=== PATIENT | female | born 1960 | race Caucasian/White ===

== ENCOUNTER 2023-01-30 13:36 | Outpatient (AMB) | payer BC, SELFPAY ==
--- NOTE | 2023-01-30 13:59 | A.OFFPSYCH_ITS ---
Intake Intake Visit Reasons: depression Allergies erythromycin base [ERYTHROMYCIN BASE] Adverse Reaction (Unknown, Unverified 02/19/20 19:26) STOMACH UPSET Medication List - Last Reconciled 01/30/23 by Parmjit Ortiz MD atorvastatin 10 mg PO DAILY glipizide ER 5 mg PO DAILY levothyroxine 88 mcg PO QAM metoprolol succinate ER 25 mg PO DAILY venlafaxine ER 150 mg PO DAILY venlafaxine ER 75 mg PO DAILY HPI- Psychiatric Chief Complaint: depression HPI Narrative: pt has been well x yrs patient still works part-time he mood has been stable no significant panic or anxiety nos depressive episodes. Has been on Effexor 225 mg times years past history of requiring ECT. Patient's PHQ-9 and anxiety are 0. Patient pleasant future oriented able to enjoy things doing generally well in her life Past Psychiatric History: Pt with hx depression was adm wing 2013 dep 2016 [facility] [place] to rehome dog who got dog Mental Status Exam Mental Status Exam Narrative: Mental Status Exam Narrative: Appearance: Casually dressed Behavior: Cooperative appropriate psychomotor: Within normal limits Speech: Normal volume and prosody Thought proccess logical and goal-directed Thought content: Future oriented no self-harming thoughts Mood: Euthymic Affect: Appropriate to mood full affect SI:denies HI:denies VH/AH:none Delusions: None Insight/judgment: Good insight and judgment Memory/cog: Intact Assessment and Plan Assessment & Plan (1) Major depression in full remission: Status: Acute Code(s): F32.5 - Major depressive disorder, single episode, in full remission Plan Continue current plan of care patient generally stable able to enjoy a activities works at maintaining her mood continue Effexor Counseling and coordination of Care Pt. Self Management counseling: Breathing and Maintenance-social rhythm Medication management counseling: Effectiveness and Side effects Diagnosis and Prognosis Counseling: Adequacy of current interventions Details: I spent [30] minutes reviewing the record, seeing the patient and documenting in the medical record. Counseling provided to the patient/caregiver as outlined below. Addressed patient/caregiver concerns regarding current medication regime including effective adherence. Addressed patient/caregiver concerns regarding diagnosis and prognosis including accuracy of diagnosis, prognosis over time, impact of diagnosis. Addressed patient/caregiver concerns regarding impact of recent stressors. PFSH Social History: 2 children no grandchildren h reired post office Substance History: none Trauma History: hx childhood trauma Coding Level of Care Code Est Pt Level 4 (96687) Diagnoses Major depression in full remission F32.5
== END 2023-01-30 14:37 | disposition home or self-care (01) ==
LOC: HO.HOP 13:36
PROVIDERS: Visit Provider Psychiatry & Neurology Psychiatry
DX: F32.5 Major depressive disorder, single episode, in full remission (principal)
CPT/HCPCS: 99214

== ENCOUNTER → 2023-01-30 13:36 | Outpatient (BNVA) | payer BC, SELFPAY | PROVIDERS: Visit Provider Psychiatry & Neurology Psychiatry ==

== ENCOUNTER 2023-11-27 14:48 | Outpatient (AMB) | payer MEDICARE, BC, SELFPAY ==
--- NOTE | 2023-11-27 15:01 | MHC.OFFVISPS ---
Intake Intake Visit Reasons: depression Allergies erythromycin base [ERYTHROMYCIN BASE] Adverse Reaction (Unknown, Unverified 02/19/20 19:26) STOMACH UPSET Medication List - Last Reconciled 11/27/23 by Parmjit Ortiz MD glipizide ER 5 mg PO DAILY levothyroxine 25 mcg PO DAILY metformin ER 1,000 mg PO BID metoprolol succinate ER 25 mg PO DAILY valsartan 40 mg PO DAILY venlafaxine ER 150 mg PO DAILY HPI- Psychiatric Chief Complaint: depression HPI Narrative: Pt is 63 yo female on effexor 150 mg no cp works for [employer] no breakthrough sx swim walks somewhat discouraged at times in her marriage her is not willing to travel since COVID difficulty leaving the house. Patient has had some cardiac arrhythmia has implant pacemaker defibrillator history of idiopathic cardiomyopathy Past Psychiatric History: Pt with hx depression was adm wing 2013 dep 2016 [facility] [place] had to rehome dog who got dog Mental Status Exam Mental Status Exam Narrative: Mental Status Exam Narrative: Appearance: Casually dressed Behavior: Cooperative appropriate psychomotor: Within normal limits Speech: Normal volume and prosody Thought proccess logical and goal-directed Thought content: Future oriented no self-harming thoughts Mood: Euthymic Affect: Appropriate to mood full affect SI:denies HI:denies VH/AH:none Delusions: None Insight/judgment: Good insight and judgment Memory/cog: Intact Assessment and Plan Assessment & Plan (1) Major depression in full remission: Status: Acute Code(s): F32.5 - Major depressive disorder, single episode, in full remission Plan Has done well on Effexor 150 mg patient does have a history of cardiomyopathy with decreased ejection fraction and in July had a pacemaker/defibrillator implanted seems to be doing well with this works full-time at the [employer] not overly depressed enjoys swimming time with her dog continue plan of care Medications: Changed From venlafaxine ER in addition to 75 mg dose 150 mg PO DAILY 90 caps 1RF To venlafaxine ER 150 mg PO DAILY 90 caps 3RF Counseling and coordination of Care Details-Self Mgmt counseling: issues related to managing current state recent issues pt with pos attitude Details: I spent [] minutes reviewing the record, seeing the patient and documenting in the medical record. Counseling provided to the patient/caregiver as outlined below. Addressed patient/caregiver concerns regarding current medication regime including effective adherence. Addressed patient/caregiver concerns regarding diagnosis and prognosis including accuracy of diagnosis, prognosis over time, impact of diagnosis. Addressed patient/caregiver concerns regarding impact of recent stressors. 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
== END 2023-11-27 17:20 | disposition home or self-care (01) ==
LOC: HO.HOP 14:48
PROVIDERS: Visit Provider Psychiatry & Neurology Psychiatry
DX: F32.5 Major depressive disorder, single episode, in full remission (principal)
CPT/HCPCS: 99214

== ENCOUNTER → 2023-11-27 14:48 | Outpatient (BNVA) | payer MEDICARE, BC, SELFPAY | PROVIDERS: Visit Provider Psychiatry & Neurology Psychiatry | DX: F32.5 Major depressive disorder, single episode, in full remission (principal) | CPT/HCPCS: 99212 ==

== ENCOUNTER 2025-02-04 14:06 | Outpatient (AMB) | payer MEDICARE, BC, SELFPAY ==
--- NOTE | 2025-02-04 14:43 | MHC.OFFVISPS ---
Intake Intake Visit Reasons: depression Allergies erythromycin base (ERYTHROMYCIN BASE) Adverse Reaction (Unknown, Unverified 02/19/20 19:26) STOMACH UPSET Medication List - Last Reconciled 02/04/25 by Parmjit Ortiz MD atorvastatin 10 mg PO DAILY glipizide ER 5 mg PO DAILY levothyroxine 88 mcg PO QAM metformin ER 1,000 mg PO BID metoprolol succinate ER 25 mg PO DAILY valsartan 40 mg PO DAILY venlafaxine ER 150 mg PO DAILY HPI- Psychiatric Chief Complaint: depression HPI Narrative: Patient seen psychiatric follow-up. Patient has tolerated Effexor well and continue to do an excellent job in preventing depressive relapse. Patient did have significant depressions in the past. No complaints of side effects blood pressure and control. Patient continues to work part-time. Continues to be frustrated that her does not want to travel. PHQ-9 0 patient stable for an extended period of time Past Psychiatric History: Pt with hx depression was adm wing 2013 dep 2016 [facility] [place] had to rehome dog who got dog Mental Status Exam Mental Status Exam Narrative: Mental Status Exam Narrative: Appearance: Casually dressed Behavior: Cooperative appropriate psychomotor: Within normal limits Speech: Normal volume and prosody Thought proccess logical and goal-directed Thought content: Future oriented no self-harming thoughts Mood: Euthymic Affect: Appropriate to mood full affect SI:denies HI:denies VH/AH:none Delusions: None Insight/judgment: Good insight and judgment Memory/cog: Intact Assessment and Plan Assessment & Plan (1) Major depression in full remission: Status: Acute Code(s): F32.5 - Major depressive disorder, single episode, in full remission Assessment and Plan: Patient stable on current regimen has not had relapsed for a number of years can follow-up with her primary care physician Plan Patient has done quite well patient stable on Effexor chronically doing well no change indicated Medications: Refilled venlafaxine ER 150 mg PO DAILY 90 caps 3RF Counseling and coordination of Care Pt. Self Management counseling: Breathing and Maintenance-social rhythm Diagnosis and Prognosis Counseling: Prognosis over time Details: I spent [30] minutes reviewing the record, seeing the patient and documenting in the medical record. Counseling provided to the patient/caregiver as outlined below. Addressed patient/caregiver concerns regarding current medication regime including effective adherence. Addressed patient/caregiver concerns regarding diagnosis and prognosis including accuracy of diagnosis, prognosis over time, impact of diagnosis. Addressed patient/caregiver concerns regarding impact of recent stressors. 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
--- OUTSIDE RECORDS SUMMARY | 2025-02-04 16:22 | XMS_ITS | Encounter Summary ---
Author Organization [facility] Address [address] [place] [id number] Phone Care Team Providers Care Dermatology Teacher Name Role Phone Nidhi Nazario MD Primary Care Provider + [phone] Unknown, Unknown Primary Care Provider Tara gonzalez Encounter Details Date Type Department Care Team (Late st Contact Info) Description 02/14/2022 Procedure Pass BWF Periop 6th floor [address] [place] [address] Social History Tobacco Use Types Packs/Day Years Used Date Smoking Tobacco: Never Smokeless Tobacco: Never Alcohol Use Standard Drinks/Week Comments Yes 0 (1 standard drink = 0.6 oz pur e alcohol) once in a while Comments Unknown Sex and Gender Information Value Date Recorded Sex Assigned at Female 12/29/2021 9:46 AM EDT Legal Sex Female 9:50 PM EDT Gender Identity Female 12/29/2021 9:46 AM EDT Sexual Orientation Straight 12/29/2021 9: 46 AM EDT documented as of this encounter Plan of Treatment Not on file documented as of this encounter Visit Diagnoses Not on filedocumented in this encounter Additional Health Concerns Assessment Noted Time PHQ-2 Depression Total Score: 0 12/30/19 9:20 AM EDT documented as of this encounter Care Teams Dermatology Teacher Relationship Specialty Start Date End Date Nidhi Nazario MD [address] [place] [id number] PCP - General Internal Medicine 6/13/22 8/28/23 Unknown, Unknown, MD PCP - General 01/30/23 documented as of this encounter Additional Source Comments The information contained in this document represents components of the legal health record. It is not the complete legal health record.[facility]
--- OUTSIDE RECORDS SUMMARY | 2025-02-04 16:22 | XMS_ITS | Encounter Summary ---
Author Organization [facility] Address [address] [place] [phone] Phone Care Team Providers Care Supervisor Fertilizer Name Role Phone Nidhi Nazario MD Primary Care Provider + [phone] Unknown, Unknown Primary Care Provider Tara gonzalez Encounter Details Date Type Department Care Team (Late st Contact Info) Description 04/03/2022 Procedure Pass BWF Periop 6th floor [address] [place] [address] Social History Tobacco Use Types Packs/Day Years [...] documented as of this encounter Care Teams Supervisor Fertilizer Relationship Specialty Start Date End Date Nidhi Nazario MD [address] [place] [phone] PCP - General Internal Medicine 6/13/22 8/28/23 Unknown, Unknown, MD PCP - General 01/30/23 documented as of this encounter Additional Source Comments The information contained in this document represents components of the legal health record. It is not the complete legal health record.[facility]
--- OUTSIDE RECORDS SUMMARY | 2025-02-04 16:22 | XMS_ITS | Clinical Summary ---
Author Organization [facility] Address [address] [place] [address] Care Team Providers Care Asbestos Textile Supervisor Name Role Phone Basilio Salguero MD Primary Care Provider [phone] Surgical History Surgery Date Site/Laterality Comments COLONOSCOPY 07/12/2011 PROCEDURE: HISTORICAL COLONOSCOPY; COMMENT: one diminutive tubular adenoma. TUBAL LIGATION 1986 PROCEDURE: HISTORICAL TUBAL LIGATION OTHER SURGICAL HISTORY 1981 PROCEDURE: ---- OTHER ----; COMMENT: L breast lumpectomy - benign OTHER SURGICAL HISTORY 2003 PROCEDURE: ---- OTHER ----; COMMENT: uterine ablation KNEE SURGERY 02.29.16 Left PROCEDURE: HISTORICAL KNEE SURGERY; COMMENT: partial replacement Medical History Medical History Date Comments Hypothyroidism 09/27/2015 DX:Hypothyroidis m Osteopenia 09/27/2015 DX:Osteopenia Anxiety 09/27/2015 DX:Anxiety Diabetes type 2, uncontrolled 09/27/2015 DX :Diabetes type 2, uncontrolled Meniere's disease 09/27/2015 DX:Meniere's d isease Depression 09/27/2015 DX:Depression Osteoarthritis of knee 09/27/2015 DX:Osteoa rthritis of knee; COMMENT: Left / had Euflexxa injections 2011 Hearing loss, sensorineural, unilateral DX:Hearing loss, sensorineural, unilateral; COMMENT: Left History of colon polyps 10/02/2015 DX:Histo ry of colon polyps; COMMENT: 2011; 5 yr f/u per pt Family History Medical History Relation Name Comments Diabetes Brother 1 Diabetes Brother 2 Coronary artery disease Father Diabetes Father Depression Son Schizophrenia Son Hypertension Neg Hx Other cancer Neg Hx Relation Name Status Comments Brother 1 Brother 2 Father Son Social History Tobacco Use Types Packs/Day Years Used Date Smoking Tobacco: Former Cigarettes 0.5 3 0 10/06/1973 - 10/06/1976 Smokeless Tobacco: Never Alcohol Use Standard Drinks/Week Comments Yes 0 (1 standard drink = 0.6 oz pur e alcohol) Comments Unknown Sex and Gender Information Value Date Recorded Sex Assigned at Not on file Legal Sex Female 10:38 AM EST Gender Identity Not on file Sexual Orientation Not on file Obstetrics History Plan of Treatment Health Maintenance Due Date Last Done Comments Diabetes: Annual GFR (Glomerular Filtration Rate) 1958 Diabetes: Annual Foot Exam 1968 Diabetes: Annual Retina Eye Exam 1968 Pneumococcal Vaccine: 50+ Years (1 of 1 - PCV) 2008 Zoster Vaccines (1 of 2) 2008 Cholesterol Screening (Lipid Panel) 05/08/2022 Colorectal Cancer Screening: Colonoscopy 05/08/2022 Hepatitis C Screening 05/08/2022 Osteoporosis Screening (Bone Density Screening) 05/08/2022 Social Influencers of Health Screening 05/08/2022 Diabetes: Annual Urine Albumin-Creatinine Ratio (uACR) 05/19/2022 Diabetes: Blood Sugar Control Test (HGBA1C) 05/19/2022 Falls Risk Assessment 09/25/2023 Depression Screening 06/04/2024 DTaP,Tdap,and Td Vaccines (2 - Td or Tdap) 09/14/2024 09/14/2014 COVID-19 Vaccine ( season) 2025 02/26/2021, 08/01/2020, 07/12/2020 Influenza Vaccine (#1) 2025 0, 04/23/2019, 03/20/2018 Breast Cancer Screening 03/14/2026 03/14/20 24, 03/01/2023, 09/05/2021, Additional history exists RSV Immunization Adult Patients (1 - 1-dose 75+ series) 2033 HIB Vaccines Aged Out No longer eligi ble based on patient's age to complete this topic HPV Vaccines Aged Out No longer eligi ble based on patient's age to complete this topic Hepatitis A Vaccines Aged Out No long er eligible based on patient's age to complete this topic Hepatitis B Vaccines Aged Out No long er eligible based on patient's age to complete this topic IPV Vaccines Aged Out No longer eligi ble based on patient's age to complete this topic MMR Vaccines Aged Out No longer eligi ble based on patient's age to complete this topic Meningococcal ACWY Vaccine Aged Out N o longer eligible based on patient's age to complete this topic Meningococcal B Vaccine Aged Out No l onger eligible based on patient's age to complete this topic RSV Immunization Patients Under 20 months Aged Out No longer eligible based on patient's age to complete this topic Varicella Vaccines Aged Out No longer eligible based on patient's age to complete this topic Procedures Procedure Name Priority Date/Time Associated Diagnosis Comments [facility] SCREENING DIGITAL Routine 03/14/2024 5:23 PM EDT Encounter for screening mammogram for malignant neoplasm of breast from Last 3 Months or Most Recently Relevant to Health Maintenance Results * JOSY SCREENING DIGITAL (03/14/2024 5:23 PM EDT) Anatomical Region Laterality Modality Mammography 03/14/2024 2:34 PM EDT Narrative 03/14/2024 5:23 PM EDT [facility] Diagnostic Imaging Department [address] [place] [address] Patient: MAYURI GIRARD /Age/Sex: 1960 - 63 - F Unit#: [id number] Location/Status: SPDIMAM/REG CLI Mnemonic/Ordering Site: [facility] Ordering Physician: RAJ JUÁREZ MD Josy Screening Digital - 03/14/24 - 150 Report Status:Signed EXAM: SCREENING MAMMOGRAPHY, BILATERAL HISTORY: SCREENING. No additional history. COMPARISON: 03/01/2023, 09/05/2021, 08/04/2020 TECHNIQUE: Synthesized CC and MLO projections of each breast. Tomosynthesis of each breast in the CC and MLO projections. ADDITIONAL IMAGING: None Computer-aided detection was employed with the iCAD profound AI 3-D. TISSUE DENSITY: The breasts are heterogeneously dense, which may obscure small masses. (BI-RADS category C) FINDINGS: RIGHT BREAST: No suspicious mass. No suspicious calcification. No distortion. No additional suspicious right breast findings LEFT BREAST: No suspicious mass. No suspicious calcification. No distortion. Power generator obscures some of the anatomy. IMPRESSION: No mammographic evidence of malignancy. No suspicious interval change. A negative mammogram in the presence of a clinically suspicious palpable abnormality does not preclude the possibility of malignancy or alter the indications for biopsy. ASSESSMENT: BI-RADS 1: NEGATIVE RECOMMENDATION(S): 1: Routine screening mammogram BILATERAL in 1 year. Dictating Physician: Ashley COHEN BRET MD Electronically Signed by: Ashley COHEN BRET MD Dic Date/Time: 03/14/241715 Sign date/Time: 03/14/241722 Procedure Note Maykel Cohen MD - 04/01/2024 [facility] Diagnostic Imaging Department [address] [place] [id number] Patient: MAYURI GIRARD Jason Bliss/Age/Sex: 1960 - 63 - F Unit#: [id number] Location/Status: [facility] CLI Mnemonic/Ordering Site: [facility] Ordering Physician: RAJ JUÁREZ MD Josy Screening Digital - 03/14/24 - 1502 Report Status:Signed EXAM: SCREENING MAMMOGRAPHY, BILATERAL HISTORY: SCREENING. No additional history. COMPARISON: 03/01/2023, 09/05/2021, 08/04/2020 TECHNIQUE: Synthesized CC and MLO projections of each breast.Tomosynthesis of each breast in the CC and MLO projections. ADDITIONAL IMAGING: None Computer-aided detection was employed with the [employer] AI 3-D. TISSUE DENSITY: The breasts are heterogeneously dense, which may obscuresmall masses. (BI-RADS category C) FINDINGS: RIGHT BREAST: No suspicious mass. No suspicious calcification. No distortion. Noadditional suspicious right breast findings LEFT BREAST: No suspicious mass. No suspicious calcification. No distortion. Power generator obscures some of the anatomy. IMPRESSION: No mammographic evidence of malignancy. No suspicious interval change. A negative mammogram in the presence of a clinically suspicious palpable abnormality does not preclude the possibility of malignancy or alter the indications for biopsy. ASSESSMENT: BI-RADS 1: NEGATIVE RECOMMENDATION(S): 1: Routine screening mammogram BILATERAL in 1 year. Dictating Physician: Ashley COHEN BRET MD Electronically Signed by: Ashley COHEN BRET MD Dic Date/Time: 03/14/241715 Sign date/Time: 03/14/241722 Raj Juárez MD IMG BI PROCEDURES Final Re sult from Last 3 Months or Most Recently Relevant to Health Maintenance Care Teams Asbestos Textile Supervisor Relationship Specialty Start Date End Date Basilio Salguero MD PCP - General Internal Medicine 08/30/15
--- OUTSIDE RECORDS SUMMARY | 2025-02-04 16:22 | XMS_ITS | Clinical Summary ---
Author Organization [facility] Address [address] [place] [phone] Phone Care Team Providers Care Football Pad Repairer Name Role Phone Unknown, Unknown Primary Care Provider Unavai lable Allergies Active Allergy Reactions Criticality Noted Date Comments Erythromycin Nausea and/or Vomiting 09/07/2016 Dapagliflozin Other (See Comments) Low 03/21/2022 Yeast infection Dulaglutide Nausea and/or Vomiting 04/12/2022 Pt reports 04/12/22 Medications meclizine (ANTIVERT) 25 mg tablet Take 25 mg by mouth 2 (two) times a day as needed. 5 Active multivitamin per tablet Take 1 tablet by mouth daily. Active venlafaxine (EFFEXOR-XR) 150 MG 24 hr capsule Take 150 mg by mouth every morning. 1 Active vitamin B complex (B COMPLEX 1 ORAL) Take 1 capsule by mouth daily. Active cholecalciferol (VITAMIN D3) 2,000 unit capsule Take 1 capsule by mouth daily. Active venlafaxine (EFFEXOR-XR) 75 MG 24 hr capsule Take 1 capsule by mouth nightly at bedtime. 2 Active melatonin 3 mg Tab Take 3 mg by mouth nightly at bedtime. Active acetaminophen (TYLENOL) 325 mg tablet Take 3 tablets (975 mg total) by mouth every 8 (eight) hours. 0 2 Active amoxicillin (AMOXIL) 500 MG capsule Take 2,000mg one hour prior to dental procedure 20 capsule 5 2 Active ibuprofen (ADVIL,MOTRIN) 800 MG tablet Take 800 mg by mouth every 8 (eight) hours as needed. 3 Active glipiZIDE (GLUCOTROL XL) 5 MG 24 hr tablet Take 1 tablet (5 mg total) by mouth daily. 90 tablet 3 3 Active metFORMIN (GLUCOPHAGE-XR) 500 MG 24 hr tablet Take 4 tablets (2,000 mg total) by mouth every morning. 240 tablet 3 3 Active levothyroxine (SYNTHROID, LEVOTHROID) 88 MCG tablet TAKE 1 TABLET BY MOUTH EVERY DAY IN THE MORNING 90 tablet 3 3 Active Active Problems Problem Noted Date Diagnosed Date Hyponatremia 09/15/2022 Assessment & Plan (09/15/2022 11:34 AM EDT): Now resolved Hypocalcemia 09/15/2022 Assessment & Plan (09/15/2022 11:33 AM EDT): Now resolved Cardiomyopathy 09/15/2022 Assessment & Plan (09/15/2022 11:32 AM EDT): Recently worsened echo findings Discussed today Dr. Smith rec'd Lisinopril 2.5mg Patient worried that it might bottom out her BP BP's at home normally on the lower side Stay hydrated Try the Lisinopril F/u Dr. Smith S/P total knee arthroplasty, left 05/01/2022 LBBB (left bundle branch block) 03/21/2022 Depression 03/21/2022 Anxiety 03/21/2022 Insomnia 03/21/2022 Vaginitis and vulvovaginitis 03/15/2022 Assessment & Plan (03/15/2022 3:26 PM EDT): I suspect this is caused as side effect of the Farxiga Decrease carbs in diet Fluconazole x 1 dose, Risks/benefits of therapy explained, including MAT and other treatment options. Need for hepatitis C screening test 12/29/2021 Assessment & Plan (12/29/2021 10:25 AM EDT): Patient Declined testing, they acknowledge the risks/benefits Screening for human immunodeficiency virus 12/29 Assessment & Plan (12/29/2021 10:25 AM EDT): Patient Declined testing, they acknowledge the risks/benefits Vitamin D deficiency 12/29/2021 Assessment & Plan (09/15/2022 11:35 AM EDT): Stable on supplements Assessment & Plan (12/29/2021 10:24 AM EDT): stable Type 2 diabetes mellitus wit h hyperglycemia, without long-term current use of insulin 12/29/2021 Assessment & Plan (09/15/2022 11:34 AM EDT): Improved on glypizide Continue to follow DM2 diet Recheck labs in 6 months Assessment & Plan (04/12/2022 2:43 PM EST): ADR to farxiga and trulicity Will try Glipizide ER 5mg Risks/benefits of therapy explained, including MAT and other treatment options. Recheck HgbA1c in 3 months Assessment & Plan (03/15/2022 3:25 PM EDT): Has been uncontrolled Overdue to labs Check labs this week Discussed Lantus daily, she'd rather not do that Also discussed GLP Concern that Farxiga may be causing the vaginitis Advised decrease carbs in diet to decrease Glucosuria, etc. Will likely add GLP Await labs Assessment & Plan (12/29/2021 10:24 AM EDT): Uncontrolled Decrease carbs in diet Increase Farxiga revheck hemoglobin aic But may not reflect full improv if less than 3 months Hyperlipidemia 12/29/2021 Assessment & Plan (09/15/2022 11:33 AM EDT): Had been better Now mildly uncontrolled Focus on healthy diet and exercise Recheck labs 6 months Assessment & Plan (03/15/2022 3:23 PM EDT): Controlled with diet Assessment & Plan (12/29/2021 10:23 AM EDT): Controlled with diet Hypothyroidism 12/29/2021 Assessment & Plan (09/15/2022 11:34 AM EDT): Stable on meds Assessment & Plan (03/15/2022 3:23 PM EDT): Stable on med Assessment & Plan (12/29/2021 10:23 AM EDT): Stable on meds Chronic knee pain 12/29/2021 Assessment & Plan (03/15/2022 3:22 PM EDT): Scheduled for surgery 04/03/22 Feels ready Adjustment disorder with mixed anxiety and depre ssed mood 12/29/2021 Assessment & Plan (09/15/2022 11:31 AM EDT): Treated by Dr. 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 Overview (07/12/2021): Let medial Sanborn UKA, tibial implant Assessment & Plan (12/29/2021 10:24 AM EDT): Surgery planned for Sept Immunizations Immunization Administration Dates Next Due Influenza Quadrivalent MDCK Preservative Free IM 03/17/2022 Influenza Quadrivalent MDCK w/Preservative IM 03/20/2018 Influenza Quadrivalent Prese rvative Free IM 04/08/2021,02/19/2020,04/23/2019,2016 PPD Test 09/22/2020,08/17/2020 Pneumococcal conjugate PCV20 09/15/2022 Tdap 09/14/2014 Zoster recombinant 11/30/2021,06/05/2021 Family History Medical History Relation Comments Diabetes type I Brother 1 Cerebral palsy Brother 2 Diabetes type II Brother 2 Hearing loss Brother 2 Arthritis Brother 3 Hypothyroidism Daughter Arthritis Father Diabetes type II Father Hypertension Father Psychiatric disorder Maternal Grandfather Arthritis Maternal Grandmother Hyperlipidemia Maternal Uncle Hypertension Maternal Uncle Pulmonary fibrosis Paternal Aunt 1 Sudden cardiac Paternal Aunt 1 Breast cancer Paternal Aunt 2 Sudden cardiac Paternal Grandfather Diabetes type II Paternal Grandmother Sudden cardiac Paternal Uncle 1 Sudden cardiac Paternal Uncle 2 Sudden cardiac Paternal Uncle 3 Sudden cardiac Paternal Uncle 4 Sudden cardiac Paternal Uncle 5 Schizophrenia Son Relation Status Comments Brother 1 Brother 2 Alive Brother 3 Alive Daughter Alive Father Maternal Grandfather Maternal Grandmother Maternal Uncle Alive Mother Paternal Aunt 1 Paternal Aunt 2 Paternal Grandfather Paternal Grandmother Paternal Uncle 1 Paternal Uncle 2 Paternal Uncle 3 Paternal Uncle 4 Paternal Uncle 5 Son Alive Social History Tobacco Use Types Packs/Day Years Used Date Smoking Tobacco: Never Smokeless Tobacco: Never Tobacco Cessation:Counseling Given: Not Answered Alcohol Use Standard Drinks/Week Comments Yes 0 (1 standard drink = 0.6 oz pur e alcohol) once in a while Education Answer Date Recorded Are you interested in more education? Not on kennedy e 09/29/2022 Are you concerned about learning? Not on file 09/29/2022 No 09/29/2022 No 09/29/2022 Digital Access Answer Date Recorded No 10/27/2022 No 10/27/2022 Reliable internet access at home? Not on file 10/27/2022 Device with a working camera? Not on file Comments No Sex and Gender Information Value Date Recorded Sex Assigned at Female 12/29/2021 9:46 AM EDT Legal Sex Female 9:50 PM EDT Gender Identity Female 12/29/2021 9:46 AM EDT Sexual Orientation Straight 12/29/2021 9: 46 AM EDT Last Filed Vital Signs Vital Sign Reading Time Taken Comments Blood Pressure 138/79 05/02/2022 9:45 AM EST Pulse 68 05/02/2022 8:59 AM EST Temperature 36.3 C (97.3 F) 05/02/2022 7:59 AM EST Respiratory Rate 18 05/02/2022 7:59 AM EST Oxygen Saturation 97% 05/02/2022 9:45 AM EST Inhaled Oxygen Concentration - - Weight 64.9 kg (143 lb) 05/01/2022 10:29 AM EST Height 166.4 cm (5' 5.5 ) 05/01/2022 10:29 AM ES T Body Mass Index 23.43 05/01/2022 10:29 AM EST Plan of Treatment Health Maintenance Due Date Last Done Comments HEPATITIS C SCREENING 1976 COLOGUARD 09/25/2003 FIT TEST 09/25/2003 FOBT 09/25/2003 SIGMOIDOSCOPY 09/25/2003 VIRTUAL COLONOSCOPY 09/25/2003 COLONOSCOPY 07/12/2021 07/12/2011, 07/11/2011 COLORECTAL CANCER SCREENING 07/12/2021 DIABETIC EYE EXAM 12/29/2021 HEMOGLOBIN A1C 09/14/2022 03/16/2022, 12/26/2021 LIPID PANEL 12/26/2022 12/26/2021 TSH LEVEL 12/26/2022 12/26/2021 DEPRESSION SCREENING 12/29/2022 12/29/2021 URINE MICROALBUMIN/CREATININE RATIO 03/16/2023 03/16/2022 BLOOD PRESSURE 03/17/2023 09/15/2022 MAMMOGRAM 09/06/2023 09/05/2021, 06/09/2014 CREATININE LEVEL 09/16/2023 09/15/2022, , 05/01/2022, Additional history exists OSTEOPOROSIS SCREENING INITIAL (ONE-TIME) 09/25/2023 Adult Td,Tdap Booster 09/14/2024 09/14/2014 INFLUENZA VACCINE (#1) 2025 , 04/08/2021, 02/19/2020, Additional history exists COVID-19 VACCINE (2024- season) 2025 02/20/2022, 09/06/2021, 02/26/2021, Additional history exists RSV VACCINE (1 - 1-dose 75+ series) 2033 ZOSTER VACCINES Completed 11/30/2021, 06/05/2021 PNEUMOCOCCAL VACCINES (50+ years) Completed 09/15/2022 SMOKING STATUS SCREENING (Once After 26 Yrs) Completed 09/15/2022 HEPATITIS A VACCINES Aged Out No long er eligible based on patient's age to complete this topic HIB VACCINES Aged Out No longer eligi ble based on patient's age to complete this topic MENINGOCOCCAL VACCINES (ACWY) Aged Out No longer eligible based on patient's age to complete this topic MENINGOCOCCAL VACCINES (B) Aged Out N o longer eligible based on patient's age to complete this topic Medical Devices Implanted Type Area Wood Form Builder Device Identifier Shelf Expiration Date Model / Serial / Lot Knee Stem [id number] Sz Tibial Pfc Sigma Titanium Extension Cemented - Sn/A Implanted:Qty: 1 on 05/01/2022 by Williams Vidal MD at [facility] NODATA Left: Knee [facility] [facility] 09/02/2027 [id number] / N/A / [id number] Prosthetic Joint Prosthetic Joint Description:Partial knee Femoral Component Sz 40sigma Cr150 [place] Ed Cemented Lt Narrow - Sn/A Implanted:Qty: 1 on 05/01/2022 by Williams Vidal MD at [facility] STANDARD Left: Knee [facility] 10/01/2025 [id number] / N/A / [id number] Knee Component 38mm Patella Oval Dome 3 Peg Pfc Sigma 06 - Sn/A Implanted:Qty: 1 on 05/01/2022 by Williams Vidal MD at [facility] STANDARD Left: Knee [facility] 12/01/2026 [id number] / N/A / [id number] Tibial Tray 4mm Pfc Sigma Fixed Bearing Modular Cemented [place] Chromium - Sn/A Implanted:Qty: 1 on 05/01/2022 by Williams Vidal MD at [facility] STANDARD Left: Knee [facility] 03/03/2032 [id number] / N/A / [id number] Tibial Insert 4x12.5mm Sigma Cross Linked Polyethylene Curved Bearing - Sn/A Implanted:Qty: 1 on 05/01/2022 by Williams Vidal MD at [facility] STANDARD Left: Knee [facility] 04/03/2024 [id number] / N/A / [id number] Cement Bone 40g Simplex P Demineralized Matrix Radiopaque Void Filler Full Dose Single Vial Bx/10ea - Sn/A Implanted:Qty: 2 on 05/01/2022 by Williams Vidal MD at [facility] Left: Knee [employer] [employer] 10/01/2024 [id number] / N/A / [id number] Procedures Procedure Name Priority Date/Time Associated Diagnosis Comments BASIC METABOLIC PANEL Routine 05/02/2022 6:28 AM EST MICROALBUMIN/CREATIN INE RATIO, RANDOM URINE Routine 03/16/2022 10:04 AM EDT Type 2 diabetes mellitus with unspecified complications HEMOGLOBIN A1C Routine 03/16/2022 9:35 AM EDT Type 2 diabetes mellitus with hyperglycemia, without long-term current use of insulin LIPID PANEL Routine 12/26/2021 9:29 AM EDT TSH Routine 12/26/2021 9:29 AM EDT HM MAMMOGRAPHY Routine 09/05/2021 HM COLONOSCOPY FOR RESULT ENTRY ONLY Routine 07/12/2011 from Last 3 Months or Most Recently Relevant to Health Maintenance Results * (ABNORMAL) Basic metabolic panel (05/02/2022 6:28 AM EST) SODIUM 132(L) 136 - 145 mmol/L [facility] CHLORIDE 99 98 - 107 mmol/L [facility] POTASSIUM 4.1 3.4 - 5.0 mmol/L [facility] CO2 28 22 - 31 mmol/L [facility] BUN 13 6 - 23 mg/dL [facility] CREATININE 0.65 0.50 - 1.20 mg/dL [facility] GLUCOSE 186(H) 70 - 115 mg/dL [facility] CALCIUM 8.5(L) 8.6 - 10.7 mg/dL [facility] EGFR 99 >60 mL/min/1.7 3m2 [facility] Comment:Estimated glomerular filtration rate calculated using the CKD-EPI refit equation. ANION GAP 5 3 - 15 mmol/L [facility] Blood 05/02/2022 6:28 AM EST 05/02/2022 6:50 AM EST us Conrado Freeman MD LAB BLOOD ORDERABLES F inal Result [facility] [address] [place] [id number] * Microalbumin/creatinine ratio, random urine (03/16/2022 10:04 AM EDT) URINE MICROALBUMIN <1.2 0 - 2.3 mg/dL [facility] URINE CREATININE 71 mg/dL [facility] MICROALB/CRE RATIO NOT CALCULATED 0 - 20 mg/g Cre [facility] Comment:due to Microalbumin <1.2 Urine (Urine) 03/16/2022 10: 04 AM EDT 03/16/2022 10:08 AM EDT us Nidhi Nazario MD URINE ORDERABLES Final Resul t [facility] [address] [place] [address] * (ABNORMAL) Hemoglobin A1c (03/16/2022 9:35 AM EDT) HEMOGLOBIN A1C 7.6(H) 4.3 - 5.8 % [facility] Blood 03/16/2022 9:35 AM EDT 03/16/2022 9:38 AM EDT us Nidhi Nazario MD LAB BLOOD ORDERABLES Final R esult [address] [address] * TSH (12/26/2021 9:29 AM EDT) TSH 0.58 0.27 - 4.20 uIU/mL [facility] 12/26/2021 9:29 AM EDT 12/26/2021 9:36 AM EDT us Leigha Gonzáles PA-C LAB BLOOD ORDERABLES Final Result Performing Organization Address [facility] de Phone Number [address] [address] * (ABNORMAL) Lipid panel (12/26/2021 9:29 AM EDT) HDL 50 mg/dL [facility] Comment: Interpretation <40 mg/dL: Low HDL cholesterol (major risk factor for CHD) Greater than or equal to 60 mg/dL: High HDL cholesterol ( negative risk factor for CHD) HDL - cholesterol is affected by a number of factors, e.g. smoking, excerise, hormones, sex and age. CHOLESTEROL 186 0 - 240 mg/dL [facility] TRIGLYCERIDES 248(H) 30 - 160 mg/dL [facility] LDL 86 50 - 129 mg/dL [facility] Comment: LDL levels in terms of risk for coronary heart disease: <100 mg/dL: Optimal 100-129 mg/dL: Near or above optimal 130-159 mg/dL: Borderline high 160-189 mg/dL: High >190 mg/dL: Very High CARDIAC RISK RATIO 3.7 3.3 - 4.4 C [facility] 12/26/2021 9:29 AM EDT 12/26/2021 9:36 AM EDT Leigha Gonzáles PA-C LAB BLOOD ORDERABLES Final Result [facility] [address] [place] [address] * MAMMOGRAPHY FOR RESULT ENTRY ONLY (09/05/2021) Historical Provider HEALTH MAINTENANCE Final Result * COLONOSCOPY FOR RESULT ENTRY ONLY (07/12/2011) Historical Provider HEALTH MAINTENANCE Edited Result - Final from Last 3 Months or Most Recently Relevant to Health Maintenance Insurance [facility] [[email or web address] MEDICARE PART A & B [facility] MEDICARE PART A & B [facility] [[email or web address]] MEDICARE PART A & B [facility] [[email or web address]] [facility] [[email or web address]] MEDICARE PART A [place] [id number] [facility] [[email or web address]] MEDICARE PART A & B [facility] [[email or web address]] MEDICARE PART A & B Care Teams Football Pad Repairer Relationship Specialty Start Date End Date Unknown, Unknown, PCP - General 01/30/23 Additional Source Comments The information contained in this document represents components of the legal health record. It is not the complete legal health record.[facility]
--- OUTSIDE RECORDS SUMMARY | 2025-02-04 16:22 | XMS_ITS | Encounter Summary ---
Author Organization [facility] Address [address] [place] [phone] Phone Care Team Providers Care Induction Coordination Engineer Name Role Phone Nidhi Nazario MD Primary Care Provider + [phone] Unknown, Unknown Primary Care Provider Tara gonzalez Encounter Details Date Type Department Care Team (Late st Contact Info) Description 05/01/2022 Procedure Pass BWF Periop 6th floor [address] [place] [address] Social History Tobacco Use Types Packs/Day Years Used Date Smoking Tobacco: Never Smokeless Tobacco: Never Alcohol Use Standard Drinks/Week Comments Yes 0 (1 standard drink = 0.6 oz pur e alcohol) once in a while Comments No Sex and Gender Information Value Date Recorded Sex Assigned at Female 12/29/2021 9:46 AM EDT Legal Sex Female 9:50 PM EDT Gender Identity Female 12/29/2021 9:46 AM EDT Sexual Orientation Straight 12/29/2021 9: 46 AM EDT documented as of this encounter Functional Status * Calculated C-SSRS Risk Score (Lifetime/Recent) Answer Date of Assessment Author No Risk Indicated 05/01/2022 5:18 PM Minor Julio RN * [place] Suicide Severity Rating Scale (Screener/Recent Self-Report) Question Answer Date of Assessment Author 1. Wish to be (Past 1 Month) No 05/01/2022 5:18 PM Trish Lima RN 2. Non-Specific Active Suicidal Thoughts (Past 1 Month) No 05/01/2022 5:18 PM Trish Lima RN 6. Suicidal Behavior (Lifetime) No 05/01/2022 5:18 PM Trish Lima RN documented as of this encounter Plan of Treatment Not on file documented as of this encounter Visit Diagnoses Not on filedocumented in this encounter Additional Health Concerns Assessment Noted Time PHQ-2 Depression Total Score: 0 12/30/19 22 9:20 AM EDT documented as of this encounter Care Teams Induction Coordination Engineer Relationship Specialty Start Date End Date Nidhi Nazario MD [address] [place] [phone] [email or web address] PCP - General Internal Medicine 11/14/21 01/29/23 Unknown, Unknown, PCP - General 01/30/23 documented as of this encounter Additional Source Comments The information contained in this document represents components of the legal health record. It is not the complete legal health record.[facility]
== END 2025-02-04 18:16 | disposition home or self-care (01) ==
LOC: HO.HOP 14:06
PROVIDERS: Visit Provider Psychiatry & Neurology Psychiatry
DX: F32.5 Major depressive disorder, single episode, in full remission (principal)
CPT/HCPCS: 99214

== ENCOUNTER → 2025-02-04 14:06 | Outpatient (BNVA) | payer MEDICARE, BC, SELFPAY | PROVIDERS: Visit Provider Psychiatry & Neurology Psychiatry | DX: F32.5 Major depressive disorder, single episode, in full remission (principal) | CPT/HCPCS: 99212 ==